=== PATIENT | male | born 1985 | race Asian ===

== ENCOUNTER 2020-08-12 10:49 | Emergency (ER) | payer OTHER ==
[~2020-08-12] VITALS: Ht 180.3 cm; Wt 81.6 kg
[2020-08-12 10:54] VITALS: BP_SYST 155
--- NOTE | 2020-08-12 11:01 | NUR ---
Patient to ER bed 7 to gown for evaluation. Side rails up.
--- NOTE | 2020-08-12 11:02 | NUR ---
MISTI Garcia at bedside examining patient.
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
[2020-08-12] MEDS ORDERED: BACITRACIN 1 GM OINT TP ONE ×2 (11:30→11:31)
[2020-08-12] MEDS ORDERED: AMOXICILLIN/CLAVULANATE POTASSIUM 250 MG/5 ML, 75 ML BTL PO ONE (11:30)
[2020-08-12] MEDS ORDERED: AMOXICILLIN/CLAVULANATE POTASSIUM 500 MG TABLET PO ONE (11:30)
[2020-08-12] MEDS ORDERED: BACITRACIN ZINC 15 GM TOPICAL OINTMENT TP ONE (11:30)
[2020-08-12] MEDS ORDERED: AMOXICILLIN/CLAVULANATE POTASSIUM 500 MG TABLET ONE (11:31)
[2020-08-12 12:11] VITALS: BP_SYST 148
--- NOTE | 2020-08-12 12:11 | NUR ---
Patient given written and verbal discharge instructions and verbalizes understanding. ER MD discussed with patient the results and treatment provided. Patient in stable condition. ID arm band removed. Patient educated on pain management and to follow up with PMD. Pain Scale 0/10. Opportunity for questions provided and answered. Medication side effect fact sheet provided.
== END 2020-08-12 12:11 | disposition home or self-care (01) ==
LOC: SED 10:49
DX: S62.333A Displaced fracture of neck of third metacarpal bone, left hand, initial encounter for closed fracture (principal); S61.552A Open bite of left wrist, initial encounter; Y04.1XXA Assault by human bite, initial encounter; Y93.89 Activity, other specified; Y92.89 Other specified places as the place of occurrence of the external cause; Y99.8 Other external cause status
CPT/HCPCS: 99283